=== PATIENT | male | born 1960 | race Caucasian/White ===

== ENCOUNTER → 2021-06-14 | Outpatient (REF) | payer OTHER | LOC: M LAB REF 19:18 | PROVIDERS: ATTEND Physician Assistant | DX: C82.90 Follicular lymphoma, unspecified, unspecified site (principal) ==

== ENCOUNTER → 2021-07-23 | Outpatient (REF) | payer OTHER | LOC: M LAB REF 13:47 | PROVIDERS: ATTEND Physician Assistant | DX: Z85.828 Personal history of other malignant neoplasm of skin (principal) ==

== ENCOUNTER → 2024-11-14 | Outpatient (CLI) | payer OTHER | LOC: M CARPUL 15:38 | PROVIDERS: ATTEND Registered Nurse | DX: R94.31 Abnormal electrocardiogram [ECG] [EKG] (principal); I44.0 Atrioventricular block, first degree; I44.4 Left anterior fascicular block ==

== ENCOUNTER → 2025-01-01 | Outpatient (POV) | payer OTHER ==
[~2025-01-01] VITALS: Ht 175.3 cm; Wt 100.0 kg
[~2025-01-01] MED LIST: AMLO1TAB25 PO; ATOR40TA75 PO; BISO5TAB14 PO; ECOT81TA5 PO; IBUP-1022 PO; ISTA0.5S OP; MV M PO; SPIR-10 PO; TELM1TAB37 PO; TEMA30CA PO
[2025-01-01 10:55] VITALS: BP 159/80; O2SAT 99
== END ==
LOC: M IRPOV 10:36
PROVIDERS: ATTEND Radiology Diagnostic Radiology
DX: I70.1 Atherosclerosis of renal artery (principal); I10 Essential (primary) hypertension; E78.5 Hyperlipidemia, unspecified; C82.9A Follicular lymphoma, unspecified, in remission; I70.0 Atherosclerosis of aorta; I70.8 Atherosclerosis of other arteries; Z72.0 Tobacco use; Z79.82 Long term (current) use of aspirin; Z79.899 Other long term (current) drug therapy; Z82.49 Family history of ischemic heart disease and other diseases of the circulatory system; Z92.21 Personal history of antineoplastic chemotherapy

== ENCOUNTER → 2025-01-15 | Outpatient (CLI) | payer OTHER ==
[~2025-01-15] MED LIST changes: +ISOVUE-370 76% 100ML VIAL As Ordered ONE
== END ==
LOC: M RAD 13:34
PROVIDERS: ATTEND Radiology Diagnostic Radiology
DX: I70.1 Atherosclerosis of renal artery (principal)
CPT/HCPCS: 74174; Q9967